=== PATIENT | male | born 1965 | race Caucasian/White ===

== ENCOUNTER 2017-08-15 11:21 | Emergency (ER) | payer OTHER ==
[~2017-08-15] VITALS: Ht 162.6 cm; Wt 46.3 kg
[~2017-08-15 11:21] MED LIST: ACIDOPHILUS1 EAC1 PO; ALBU90OI61 INH; ASCO500 PO; BENTYL10 MG PO; Balsalazide Di750 MG PO; CALCA500CH PO; CEPH500 PO; CYCL10 PO; DELZICOL400 M1 PO; ERGO50000 PO; HYDACE5 PO; HYDR-86 PO; HYOS.125 SL; NOXAFIL PO; OXYACE7.5T PO; Omeprazole20 M1 PO; PRED20 PO; PROM25 PO; ROXICODONE5 MG PO; Sulfamethoxazo1 EAC4 PO
[2017-08-15 12:08] LABS: BASOPHILS ABSOLUTE AUTO 0.05 K/mm3 (0.00-0.23); BASOPHILS PERCENT AUTO 0 % (0-2); EOSINOPHILS ABSOLUTE AUTO 0.07 K/mm3 (0.00-0.68); EOSINOPHILS PERCENT AUTO 1 % (0-6); Hematocrit 36.8 % (37.0-53.0); Hemoglobin 12.6 g/dL (13.5-17.5); IMMATURE GRAN ABSOLUTE AUTO 0.69 K/mm3 (0.00-0.10); IMMATURE GRAN PERCENT AUTO 5 % (0-1); LYMPHOCYTES ABSOLUTE AUTO 2.08 K/mm3 (0.84-5.20); LYMPHOCYTES PERCENT AUTO 14 % (21-46); MONOCYTES PERCENT AUTO 27 % (4-13); Mean Corpuscular HGB 29.8 pg (26.0-34.0); Mean Corpuscular HGB Conc 34.2 g/dL (31.5-36.5); Mean Corpuscular Volume 87 fL (80-100); NEUTROPHILS ABSOLUTE AUTO 8.41 K/mm3 (1.96-9.15); NEUTROPHILS PERCENT AUTO 55 % (41-73); Platelet Count 188 K/mm3 (150-400); RDW Coefficient Variation 14.9 % (11.7-14.2); RDW Standard Deviation 47.4 fL (35.1-46.3); Red Blood Cell Count 4.23 M/mm3 (4.30-5.90)
[2017-08-15 12:29] LABS: Alanine Aminotransfer (ALT/SGP 62 U/L (12-78); Albumin, Blood 3.3 g/dL (3.4-5.0); Albumin/Globulin Ratio 0.9 (0.8-1.8); Alk Phos 122 U/L (50-136); Anion Gap 6 mmol/L (6-16); Aspartate Aminotrans (AST/SGOT 32 U/L (12-37); Bilirubin, Total 0.4 mg/dL (0.1-1.0); Blood Urea Nitrogen 14 mg/dL (8-24); Bun/Creatinine Ratio 26.4 (12.0-20.0); CO2, Blood 29 mmol/L (21-32); Calcium, Blood 8.2 mg/dL (8.5-10.1); Chloride, Blood 106 mmol/L (98-108); Creatinine, Blood 0.53 mg/dL (0.60-1.20); Globulin, Blood 3.8 g/dL (2.2-4.0); Glomerular Filtration Rate >60 (60-); Glucose, Blood 108 mg/dL (70-99); Potassium, Blood 3.3 mmol/L (3.5-5.5); Sodium, Blood 141 mmol/L (136-145); Total Protein, Blood 7.1 g/dL (6.4-8.2)
[2017-08-15 13:17] LABS: Troponin I <0.015 ng/mL (0.000-0.040)
[2017-08-15] MEDS ORDERED: CYCL10 PO (15:46)
[2017-08-15] MEDS ORDERED: SULF500A PO (15:47)
[2017-08-15] MEDS ORDERED: CALCIUM CARBONATE PO (15:48)
[2017-08-15] MEDS ORDERED: METO25 (15:48)
[2017-08-15] MEDS ORDERED: FOLI1 PO (15:49)
[2017-08-15] MEDS ORDERED: POTA10T PO (15:49)
[2017-08-15] MEDS ORDERED: FURO20 PO (15:49)
[2017-08-15] MEDS ORDERED: ACIDOPHILUS1 EAC1 PO (15:50)
[2017-08-15] MEDS ORDERED: ALBU90OI INH (15:51)
[2017-08-15] MEDS ORDERED: Omeprazole20 M1 (15:51)
[2017-08-15] MEDS ORDERED: ANORO ELLIPTA1 EACH INH (15:52)
[2017-08-15] MEDS ORDERED: Ventolin5 MG/1 ML INH (15:52)
[2017-08-15] MEDS ORDERED: HYOSCYAMINE SULFATE PO (15:54)
[2017-08-15] MEDS ORDERED: TAMS.4ER PO (15:55)
== END 2017-08-15 16:52 | disposition home or self-care (01) ==
LOC: ER 11:21
PROVIDERS: Emergency Medicine
DX: R42 Dizziness and giddiness (principal); Z88.8 Allergy status to other drugs, medicaments and biological substances; Z79.899 Other long term (current) drug therapy; Z79.52 Long term (current) use of systemic steroids; I48.91 Unspecified atrial fibrillation; F17.210 Nicotine dependence, cigarettes, uncomplicated
CPT/HCPCS: 36415; 71046; 80053; 83880; 84484; 85025; 93005; 93010; 96360; 99283; J7030

== ENCOUNTER → 2019-08-02 | Outpatient (CLI) | payer OTHER ==
[~2019-08-02] MED LIST changes: +ALBU90OI INH; +ANORO ELLIPTA1 EACH INH; +CALCIUM CARBONATE PO; +FOLI1 PO; +FURO20 PO; +HYOSCYAMINE SULFATE PO; +METO25; +Omeprazole20 M1; +POTA10T PO; +SULF500A PO; +TAMS.4ER PO; +Ventolin5 MG/1 ML INH
[2019-08-02 15:05] LABS: Source, Urine Clean Catch
[2019-08-02 17:53] LABS: Bilirubin, Urine Neg (Neg); Blood, Urine 2+ (Neg); Glucose Qualitative, Urine Neg (Neg); Ketones, Urine Neg (Neg); Leukocyte Esterase, Urine 1+ (Neg); Nitrite, Urine Neg (Neg); Protein, Urine Neg (Neg); Urobilinogen, Urine NORM (Normal)
[2019-08-02 18:00] LABS: Appearance, Urine Hazy (Clear); Color, Urine Yellow (P-Yellow)
[2019-08-02 18:03] LABS: Squamous Epithelial Cells Rare /hpf (Few)
[2019-08-02 18:04] LABS: Bacteria Rare /hpf
== END | disposition home or self-care (01) ==
LOC: LAB 14:00 → LAB SHORT 14:00
PROVIDERS: Nurse Practitioner Family
DX: C94.6 Myelodysplastic disease, not elsewhere classified (principal)
CPT/HCPCS: 81001; 87086

== ENCOUNTER 2020-05-04 09:37 | Day surgery (SDC) | payer OTHER ==
[~2020-05-04 09:37] MED LIST changes: +ALBUTEROL2.5 MG/0.5 INH; -Ventolin5 MG/1 ML INH
[2020-05-04] MEDS ORDERED: HYDMOR4 PO (15:15)
[2020-05-04] MEDS ORDERED: ONDA4ODT MM (15:16)
[2020-05-04] MEDS ORDERED: ACET325 PO (15:16)
[2020-05-04] MEDS ORDERED: HYDURE500 PO (15:17)
[2020-05-04] MEDS ORDERED: LIDO700A20 TOP (15:17)
[2020-05-04] MEDS ORDERED: PROC5 PO (15:22)
[2020-05-04] MEDS ORDERED: MAGNESIUM OXID500 MG PO (15:31)
[2020-05-04] MEDS ORDERED: FERROUS GLUCON324 M7 PO (15:32)
[2020-05-04] MEDS ORDERED: DICLOFENAC SOD100 G1 TOP (15:33)
[2020-05-04] MEDS ORDERED: TORSE20 PO (15:33)
[2020-05-04] MEDS ORDERED: VITAMIN D310 MC4 PO (15:34)
[2020-05-04] MEDS ORDERED: MULVITA PO (15:34)
[2020-05-04] MEDS ORDERED: ASPI81CH PO (15:35)
[2020-05-04] MEDS ORDERED: LANOXIN125 MCG PO (15:35)
--- NOTE | 2020-05-04 17:05 | NUR ---
PT COUGHING INTERMITTENTLY. STATES THIS IS NORMAL FOR HIM. STATES SATS RUN 94-96% WHEN CHECKED AT HOME. LUNG SOUNDS CLEAR.
== END 2020-05-04 17:40 | disposition home or self-care (01) ==
LOC: ATC 09:37
DX: D47.1 Chronic myeloproliferative disease (principal); Z88.8 Allergy status to other drugs, medicaments and biological substances; F17.210 Nicotine dependence, cigarettes, uncomplicated
CPT/HCPCS: 36415; 36430; 86850; 86900; 86901; 86923; A9270; J7050; P9016

== ENCOUNTER 2020-06-03 00:29 | Day surgery (SDC) | payer OTHER ==
[~2020-06-03 00:29] MED LIST changes: +ACET325 PO; +ASPI81CH PO; +DICLOFENAC SOD100 G1 TOP; +FERROUS GLUCON324 M7 PO; +HYDMOR4 PO; +HYDURE500 PO; +LANOXIN125 MCG PO; +LIDO700A20 TOP; +MAGNESIUM OXID500 MG PO; +MULVITA PO; +ONDA4ODT MM; +PROC5 PO; +TORSE20 PO; +VITAMIN D310 MC4 PO
== END 2020-06-03 12:25 | disposition home or self-care (01) ==
LOC: ATC 00:29
DX: C93.00 Acute monoblastic/monocytic leukemia, not having achieved remission (principal); J44.9 Chronic obstructive pulmonary disease, unspecified; F17.210 Nicotine dependence, cigarettes, uncomplicated; Z88.8 Allergy status to other drugs, medicaments and biological substances
CPT/HCPCS: 36415; 36430; 86850; 86900; 86901; 86923; J7050; P9016

== ENCOUNTER 2020-06-26 02:02 | Day surgery (SDC) | payer OTHER ==
--- NOTE | 2020-06-26 15:40 | NUR ---
PT ARRIVES WITH SL IN PLACE. SL WAS PLACED AT MD OFFICE THIS MORNING. FLUSHES EASILY.
== END 2020-06-26 17:40 | disposition home or self-care (01) ==
LOC: ATC 02:02
DX: D47.1 Chronic myeloproliferative disease (principal); C92.00 Acute myeloblastic leukemia, not having achieved remission; D69.6 Thrombocytopenia, unspecified
CPT/HCPCS: 36415; 36430; 86850; 86900; 86901; 86923; J7050; P9016

== ENCOUNTER 2020-07-18 09:45 | Day surgery (SDC) | payer OTHER | END 2020-07-18 12:26 | disposition home or self-care (01) | LOC: ATC 09:45 | DX: D47.1 Chronic myeloproliferative disease (principal); C92.00 Acute myeloblastic leukemia, not having achieved remission; F17.210 Nicotine dependence, cigarettes, uncomplicated | CPT/HCPCS: 36415; 36430; 86850; 86900; 86901; 86923; A9270; J7050; P9016 ==

== ENCOUNTER 2020-08-06 08:17 | Day surgery (SDC) | payer OTHER ==
--- NOTE | 2020-08-06 15:52 | NUR ---
IV LEFT IN PLACE AT PT REQUEST, PT GOING TO CHEMOTHERAPY APPT NEXT.
== END 2020-08-06 15:55 | disposition home or self-care (01) ==
LOC: ATC 08:17
DX: D47.1 Chronic myeloproliferative disease (principal)
CPT/HCPCS: 36415; 36430; 86850; 86900; 86901; 86923; A9270; J7050; P9016

== ENCOUNTER 2020-08-21 10:33 | Day surgery (SDC) | payer OTHER ==
[2020-08-21] MEDS ORDERED: CHEMO PO (15:45)
== END 2020-08-21 17:29 | disposition home or self-care (01) ==
LOC: ATC 10:33
DX: D47.1 Chronic myeloproliferative disease (principal); C92.00 Acute myeloblastic leukemia, not having achieved remission; J44.9 Chronic obstructive pulmonary disease, unspecified; F17.210 Nicotine dependence, cigarettes, uncomplicated; K21.9 Gastro-esophageal reflux disease without esophagitis
CPT/HCPCS: 36430; 86850; 86900; 86901; 86923; A9270; J7050; P9016

== ENCOUNTER 2020-09-04 01:11 | Day surgery (SDC) | payer OTHER ==
[~2020-09-04 01:11] MED LIST changes: +CHEMO PO
== END 2020-09-04 09:58 | disposition home or self-care (01) ==
LOC: ATC 01:11
DX: D47.1 Chronic myeloproliferative disease (principal); C92.00 Acute myeloblastic leukemia, not having achieved remission; J44.9 Chronic obstructive pulmonary disease, unspecified; K21.9 Gastro-esophageal reflux disease without esophagitis; F17.210 Nicotine dependence, cigarettes, uncomplicated; Z92.21 Personal history of antineoplastic chemotherapy
CPT/HCPCS: 36415; 86850; 86900; 86901; 86923; A9270; J7050; P9016

== ENCOUNTER 2020-09-26 14:12 | Day surgery (SDC) | payer OTHER | END 2020-09-26 16:15 | disposition home or self-care (01) | LOC: ATC 14:12 → LAB FUT 02-06 14:45 → EDSTATUS 02-06 14:45 | DX: C94.6 Myelodysplastic disease, not elsewhere classified (principal); C92.00 Acute myeloblastic leukemia, not having achieved remission; J44.9 Chronic obstructive pulmonary disease, unspecified; F17.210 Nicotine dependence, cigarettes, uncomplicated; Z88.6 Allergy status to analgesic agent | CPT/HCPCS: 36430; 86850; 86900; 86901; 86923; A9270; J7050; P9016 ==

== ENCOUNTER 2020-10-30 01:06 | Day surgery (SDC) | payer OTHER | END 2020-10-30 10:22 | disposition home or self-care (01) | LOC: ATC 01:06 | DX: D47.1 Chronic myeloproliferative disease (principal); J44.9 Chronic obstructive pulmonary disease, unspecified; F17.210 Nicotine dependence, cigarettes, uncomplicated; Z88.8 Allergy status to other drugs, medicaments and biological substances | CPT/HCPCS: 36415; 86850; 86900; 86901; 86923; A9270; J7050; P9016 ==

== ENCOUNTER 2020-11-19 00:36 | Day surgery (SDC) | payer OTHER | END 2020-11-19 15:38 | disposition home or self-care (01) | LOC: ATC 00:36 | DX: D47.1 Chronic myeloproliferative disease (principal); J44.9 Chronic obstructive pulmonary disease, unspecified; F17.210 Nicotine dependence, cigarettes, uncomplicated; Z88.6 Allergy status to analgesic agent; Z79.82 Long term (current) use of aspirin; Z79.899 Other long term (current) drug therapy | CPT/HCPCS: 36430; 86850; 86900; 86901; 86923; A9270; J7050; P9016 ==

== ENCOUNTER 2021-01-11 10:02 | Day surgery (SDC) | payer OTHER | END 2021-01-11 15:21 | disposition home or self-care (01) | LOC: ATC 10:02 | DX: C92.00 Acute myeloblastic leukemia, not having achieved remission (principal); J44.9 Chronic obstructive pulmonary disease, unspecified; F17.210 Nicotine dependence, cigarettes, uncomplicated | CPT/HCPCS: J7030 ==

== ENCOUNTER 2021-01-15 01:51 | Day surgery (SDC) | payer OTHER | END 2021-01-15 15:38 | disposition home or self-care (01) | LOC: ATC 01:51 | DX: C92.00 Acute myeloblastic leukemia, not having achieved remission (principal); J44.9 Chronic obstructive pulmonary disease, unspecified; F17.210 Nicotine dependence, cigarettes, uncomplicated; Z88.8 Allergy status to other drugs, medicaments and biological substances | CPT/HCPCS: J7030 ==

== ENCOUNTER 2021-01-19 02:54 | Day surgery (SDC) | payer OTHER ==
--- NOTE | 2021-01-19 14:09 | NUR ---
O2 SATS 70-80'S ON ROOM AIR. QUICKLY RAISED TO MID 90'S WITH 2LMN O2. PT STATES HE HAS O2 BUT LEFT IT IN HIS CAR.
[2021-01-19] MEDS ORDERED: Flonase 0.05% N16 GM (14:22)
== END 2021-01-19 17:10 | disposition home or self-care (01) ==
LOC: ATC 02:54
DX: C92.00 Acute myeloblastic leukemia, not having achieved remission (principal); J44.9 Chronic obstructive pulmonary disease, unspecified; F17.200 Nicotine dependence, unspecified, uncomplicated; Z88.6 Allergy status to analgesic agent
CPT/HCPCS: 86850; 86900; 86901; 86923; A9270; J7030; J7050; P9016

== ENCOUNTER 2021-01-22 01:29 | Day surgery (SDC) | payer OTHER ==
[~2021-01-22 01:29] MED LIST changes: +Flonase 0.05% N16 GM
[2021-01-22 18:25] LABS: Anion Gap 6 mmol/L (6-16); Blood Urea Nitrogen 11 mg/dL (8-24); Bun/Creatinine Ratio 13.3 (12.0-20.0); CO2, Blood 26 mmol/L (21-32); Calcium, Blood 7.7 mg/dL (8.5-10.1); Chloride, Blood 110 mmol/L (98-108); Creatinine, Blood 0.83 mg/dL (0.60-1.20); Glomerular Filtration Rate >60 (60-); Glucose, Blood 137 mg/dL (70-99); Potassium, Blood 2.7 mmol/L (3.5-5.5); Sodium, Blood 142 mmol/L (136-145)
== END 2021-01-22 17:50 | disposition home or self-care (01) ==
LOC: ATC 01:29
PROVIDERS: Physician Assistant Medical
DX: C92.00 Acute myeloblastic leukemia, not having achieved remission (principal); D47.1 Chronic myeloproliferative disease; J44.9 Chronic obstructive pulmonary disease, unspecified; F17.210 Nicotine dependence, cigarettes, uncomplicated
CPT/HCPCS: 80048; J3480; J7030

== ENCOUNTER 2021-01-28 01:22 | Day surgery (SDC) | payer OTHER ==
[2021-01-28] MEDS ORDERED: FLUTICASONE PRO16 GM (14:23)
[2021-01-28] MEDS ORDERED: ANORO ELLIPTA1 EAC1 INH (14:24)
== END 2021-01-28 15:23 | disposition home or self-care (01) ==
LOC: ATC 01:22
DX: C92.00 Acute myeloblastic leukemia, not having achieved remission (principal); C94.6 Myelodysplastic disease, not elsewhere classified; J44.9 Chronic obstructive pulmonary disease, unspecified; F17.210 Nicotine dependence, cigarettes, uncomplicated; Z88.6 Allergy status to analgesic agent
CPT/HCPCS: 96360; J7030

== ENCOUNTER 2021-02-01 04:40 | Day surgery (SDC) | payer OTHER ==
[~2021-02-01 04:40] MED LIST changes: +ANORO ELLIPTA1 EAC1 INH; +FLUTICASONE PRO16 GM
== END 2021-02-01 14:09 | disposition home or self-care (01) ==
LOC: ATC 04:40
DX: C92.00 Acute myeloblastic leukemia, not having achieved remission (principal); D46.9 Myelodysplastic syndrome, unspecified; F17.210 Nicotine dependence, cigarettes, uncomplicated
CPT/HCPCS: J7030

== ENCOUNTER 2021-02-02 11:19 | Day surgery (SDC) | payer OTHER | END 2021-02-02 18:32 | disposition home or self-care (01) | LOC: ATC 11:19 | DX: D46.9 Myelodysplastic syndrome, unspecified (principal); J44.9 Chronic obstructive pulmonary disease, unspecified; F17.210 Nicotine dependence, cigarettes, uncomplicated; Z88.6 Allergy status to analgesic agent | CPT/HCPCS: 86850; 86900; 86901; 86923; A9270; J7050; P9016 ==

== ENCOUNTER 2021-02-06 11:02 | Day surgery (SDC) | payer OTHER | END 2021-02-06 12:28 | disposition home or self-care (01) | LOC: ATC 11:02 | DX: C92.00 Acute myeloblastic leukemia, not having achieved remission (principal); C94.6 Myelodysplastic disease, not elsewhere classified; J44.9 Chronic obstructive pulmonary disease, unspecified; F17.210 Nicotine dependence, cigarettes, uncomplicated | CPT/HCPCS: J7030 ==

== ENCOUNTER 2021-02-12 14:14 | Day surgery (SDC) | payer OTHER | END 2021-02-12 15:40 | disposition home or self-care (01) | LOC: ATC 14:14 | DX: C92.00 Acute myeloblastic leukemia, not having achieved remission (principal); D46.9 Myelodysplastic syndrome, unspecified; J44.9 Chronic obstructive pulmonary disease, unspecified | CPT/HCPCS: 96360; J7030 ==